=== PATIENT | male | born 1950 | race Caucasian/White ===

== ENCOUNTER 2018-06-19 12:38 | Emergency (ER) | payer BC, SELFPAY ==
[2018-06-19 12:39] VITALS: BP 158/99; PULSE 78; RESP 15; TEMP 36.3; O2SAT 98; BMI 27.7
--- NOTE | 2018-06-19 13:09 | CT_ITS ---
STUDY: CTA CHEST REASON FOR EXAM: Male, 67 years old. Chest and arm pain, back pain RADIATION DOSAGE (If Supplied By Facility): CTDIvol = ( 19.60 ) mGy, DLP = ( 1573.51 ) mGycm TECHNIQUE: The examination was performed with the intravenous administration of 100 ml of Isovue 370 contrast material. Post-processing of the angiographic images was performed, with multiplanar reformation and 3D reconstruction. Individualized dose optimization techniques were used for this CT. COMPARISON: Previous chest x-rays FINDINGS: Normal enhancement of the main pulmonary artery and right and left pulmonary arteries. Normal enhancement of the bilateral peripheral pulmonary arteries. There is no demonstrated pulmonary embolism. Normal thoracic aorta and visualized great vessels. There is no demonstrated aortic dissection. Normal heart and pericardium. There are calcifications of the coronary arteries. Normal mediastinum. Normal hilar regions. There is peribronchial thickening. The lungs are well expanded. Chronic interstitial changes in both lung tse, no superimposed acute pulmonary process. Normal pleura. Normal chest wall structures. There are degenerative changes of thoracic spine. Limited cuts through the upper abdomen show simple cysts within the liver. CT/CTA Chest W/WO Contrast IMPRESSION: No demonstrated PE, or thoracic aortic aneurysm or dissection Chronic interstitial changes in both lung tse, no superimposed infiltrate or effusion Calcified coronary vessels Hepatic cysts Degenerative bony changes Electronically Signed: Juan José Dubose MD at 16:19 EST , Service support ,
--- NOTE | 2018-06-19 13:09 | CT_ITS ---
STUDY: CTA OF THE BRAIN REASON FOR EXAM: Male, 67 years old. Left arm neck and chest pain RADIATION DOSAGE (If Supplied By Facility): CTDIvol = ( ) mGy, DLP = ( 846.73 ) mGycm TECHNIQUE: CT angiography was performed with a multi-detector CT scanner. Data acquisition was obtained from the skull base through the vertex following intravenous administration of ml of . MIP images were reconstructed from the axial data set. Post-processing of the angiographic images was performed, with multiplanar reformation and 3D reconstruction. Individualized dose optimization techniques were used for this CT. COMPARISON: None. FINDINGS: Normal bilateral petrous carotid arteries. Normal right cavernous carotid artery with a normal supraclinoid bifurcation. Normal left cavernous carotid artery with a normal supraclinoid bifurcation. Normal right A1 segments of the anterior cerebral artery. Normal left A1 segments of the anterior cerebral artery. Normal intact anterior communicating artery (ACOM). Normal bilateral A2 segments of the anterior cerebral arteries. Normal right M1 and M2 segments of the middle cerebral arteries, with a normal M1 bifurcation. Normal left M1 and M2 segments of the middle cerebral arteries, with a normal M1 bifurcation. Posterior communicating arteries are not visualized consistent with normal developmental variant. Normal bilateral vertebral arteries. Normal basilar artery with a normal basilar bifurcation. The visualized bilateral superior cerebellar (SCA) arteries are normal. Normal bilateral P1, P2 and visualized P3 segments of the posterior cerebral arteries. There is no demonstrated aneurysm of the kaw of [place]. There is no demonstrated abnormality of the visualized brain. CT/CTA Head W/WO Contrast IMPRESSION: Normal kaw of [place] without a demonstrated aneurysm or hemodynamically significant stenosis. Electronically Signed: Luisito Kaufman MD at 16:26 EST , Service support ,
--- NOTE | 2018-06-19 13:09 | EKG12_ITS ---
Test Reason : GEN ILLNESS Blood Pressure : / mmHG Vent. Rate : 058 BPM Atrial Rate : 058 BPM P-R Int : 148 ms QRS Dur : 094 ms QT Int : 432 ms P-R-T Axes : 017 011 026 degrees QTc Int : 424 ms Sinus bradycardia Otherwise normal ECG Confirmed by ABBY BROOKS, JOSE EDUARDO ([id number]), graphic editor DAVID JEAN-BAPTISTE ([id number]) on 06/21/2018 1:47:55 PM Referred By: KOFI Confirmed By:JOSE EDUARDO MORA MD
--- NOTE | 2018-06-19 13:09 | CT_ITS ---
STUDY: CTA NECK WITH AND WITHOUT CONTRAST REASON FOR EXAM: Male, 67 years old. Left arm chest and neck pain RADIATION DOSAGE (If Supplied By Facility): CTDIvol = ( ) mGy, DLP = ( 1573.5 ) mGycm TECHNIQUE: CT angiography with multi-detector data acquisition was performed from the aortic arch to the skull base prior to and after intravenous administration of 100ML ml of Isovue 370 contrast. MIP images were reconstructed from the axial data set. Post-processing of the angiographic images was performed, with multiplanar reformation and 3D reconstruction. Individualized dose optimization techniques were used for this CT. COMPARISON: None. FINDINGS: AORTIC ARCH: Normal visualized aortic arch. Normal origins of the brachiocephalic, left common carotid, and left subclavian arteries. RIGHT CAROTID ARTERIES: Mild diffuse soft plaque of the right common carotid artery (CCA). Minor soft plaque of the right common carotid bulb. Minor soft plaque of the origin of the right internal carotid (ICA) artery without a hemodynamically significant stenosis. Normal visualized cervical portion of the right internal carotid artery. Normal origin of the right external carotid artery (ECA). LEFT CAROTID ARTERIES: Mild diffuse soft plaque of the left common carotid artery (CCA). Minor soft plaque of the left common carotid bulb. Minor soft plaque of the origin of the left internal carotid (ICA) artery without a hemodynamically significant stenosis. Mild calcific plaque of the cervical portion of the left internal carotid artery. Normal origin of the left external carotid artery (ECA). VERTEBRAL ARTERIES: Normal bilateral vertebral arteries. CT/CTA Neck W/WO Contrast IMPRESSION: Mild atherosclerotic disease slightly more advanced on the left. No evidence for hemodynamically significant stenosis utilizing NASCET criteria Electronically Signed: Luisito Kaufman MD at 16:38 EST , Service support ,
[2018-06-19 13:34] VITALS: BP 144/81; PULSE 60; RESP 18; O2SAT 98
[2018-06-19 13:48] LABS: Absolute Lymphocyte Count 0.97 X10^3/ul (0.83-4.51); Absolute Neutrophil Count 2.8 X10^3/uL (2.0-7.7); Basophil# 0.01 X10^3/uL; Basophil% 0.2 % (0-1); Eosinophil# 0.09 X10^3/uL; Eosinophils% 2.1 % (0-5); Hematocrit 42.9 % (40-54); Hemoglobin 14.6 g/dl (13.0-16.5); Lymphocyte # 0.97 X10^3/ul (4.0); Lymphocyte % 22.2 % (19-41); Mean Corpuscular Hgb 31.9 pg (27.0-32.0); Mean Corpuscular Volume 93.7 fL (80-94); Mean Platelet Vol. 9.7 fl (6.2-12.0); Monocyte# 0.48 X10^3/uL; Neutrophil # 2.81 X10^3/uL (2.7-7.7); Neutrophil % 64.3 % (47-70); Platelet Count 163 K/mm3 (150-450); RBC Distribution Width CV 12.7 % (11.6-14.6); RBC Distribution Width SD 43.5 fl (35.1-43.9); Red Blood Count 4.58 M/mm3 (4.6-6.2); White Blood Count 4.4 K/mm3 (4.4-11.0)
[2018-06-19] MEDS: 0.9% Normal Saline 1,000 ML 1000 ML IV (13:48)
[2018-06-19 13:51] LABS: POSITIVE COUNT NO; POSITIVE DIFFERENTIAL NO; POSITIVE MORPHOLOGY NO
[2018-06-19 14:06] LABS: Anion Gap 8 (5-15); BUN 15 mg/dL (7-18); BUN/Creat Ratio 13.2 RATIO (10-20); Calcium,Total 8.2 mg/dL (8.5-10.1); Chloride 106 mmol/L (98-107); Creatinine, Serum 1.14 mg/dL (0.70-1.30); EST Glomerular Filtration Rate 68 mL/min (>60); Est Glom Filt Rate - Afr Amer 82 mL/min (>60); Estimated Creatinine Clearance 66.97 ml/min; Glucose 96 mg/dL (74-106); Potassium 3.9 mmol/L (3.5-5.1); Sodium Level 140 mmol/L (136-145)
[2018-06-19 15:17] VITALS: BP 141/81; PULSE 54; RESP 18; O2SAT 99
[2018-06-19 17:00] VITALS: BP 119/80; PULSE 63; RESP 16; O2SAT 96
--- NOTE | 2018-06-19 17:00 | ED.VISSUMM ---
- ER Visit Summary Date of Service: 06/19/18 Chief Complaint: Dizziness, chest pain, and fatigue History of Present Illness: The patient is a 67 M with multiple symptoms over the past few days. 4 days ago, he was dropping things at work with both hands. He felt like he had low energy. 3 days ago, he had some chest pain it was about a 3 out of 10 and it resolved with aspirin. 2 days ago, he felt dizzy. He had a floating sensation. He denies feeling like he was going to pass out. Over the past couple days, he just feels tired and weak. He came in today because his symptoms seem to be progressing. He was worried about a heart attack or stroke. He denies any history of coronary disease, [place], stroke, aortic or vascular disease, or PE. Physical Examination: Afebrile and vital signs unremarkable. Alert and oriented. No acute distress. Cranial nerves grossly intact. No focal or lateralizing neurologic abnormalities, normal speech. NIH stroke scale is 0. Heart regular rate and rhythm. Lungs clear. Abdomen soft and nontender. Skin normal in color without diaphoresis or pallor. Test Results: EKG showed sinus rhythm at a rate of 58. No sign of acute ischemia or infarction pattern. CBC, BMP, troponin normal. CTA brain was unremarkable. CTA neck showed atherosclerotic disease, worse on the left. CTA chest showed chronic changes, calcified coronary arteries, hepatic cyst, and degenerative spinal changes. Emergency Department Course and Treatment: Patient has multiple vague symptoms. They seem to be inconsistent. This could be an atypical presentation for cardiac disease or HEALTH CARE SOCIAL WORKER disease. I also considered vascular etiologies. There is nothing to suggest infection, pulmonary, GI disease. I did a thorough workup. His EKG and labs were unremarkable. CTA brain, neck, and chest showed chronic changes. No significant stenosis. No aneurysms. No dissection or PE. Nothing to explain his constellation of symptoms. On reevaluation, the patient has no further symptoms. He feels better. No changes. He is overall low risk and would like to follow-up as an outpatient. Spoke with Dr. Shane who is comfortable following up with him as an outpatient. Advised the patient to return for any new or worsening symptoms right away. Treatment Plan: As above Disposition: Discharge Impression: 1. Dizziness This note was generated with [employer] software. It may contain incorrect words, spelling, and punctuation that were not noted in review of the chart prior to signing ED Disposition - Plan for ED Patient: Chief Complaint: General Illness Referrals: Herman Shane III, MD [Primary Care Provider] -
[2018-06-19 17:01] VITALS: BP 134/84; PULSE 63; RESP 17; O2SAT 96
--- NOTE | 2018-06-19 17:05 | ED.DCSUM_ITS ---
- ER Visit Summary Date of Service: 06/19/18 Chief Complaint: Dizziness, chest pain, and fatigue History of Present Illness: The patient is a 67 M with multiple symptoms over the past few days. 4 days ago, he was dropping things at work with both hands. He felt like he had low energy. 3 days ago, he had some chest pain it was about a 3 out of 10 and it resolved with aspirin. 2 days ago, he felt dizzy. He had a floating sensation. He denies feeling like he was going to pass out. Over the past couple days, he just feels tired and weak. He came in today because his symptoms seem to be progressing. He was worried about a heart attack or stroke. He denies any history of coronary disease, [place], stroke, aortic or vascular disease, or PE. Physical Examination: Afebrile and vital signs unremarkable. Alert and oriented. No acute distress. Cranial nerves grossly intact. No focal or lateralizing neurologic abnormalities, normal speech. NIH stroke scale is 0. Heart regular rate and rhythm. Lungs clear. Abdomen soft and nontender. Skin normal in color without diaphoresis or pallor. Test Results: EKG showed sinus rhythm at a rate of 58. No sign of acute ischemia or infarction pattern. CBC, BMP, troponin normal. CTA brain was unremarkable. CTA neck showed atherosclerotic disease, worse on the left. CTA chest showed chronic changes, calcified coronary arteries, hepatic cyst, and degenerative spinal changes. Emergency Department Course and Treatment: Patient has multiple vague symptoms. They seem to be inconsistent. This could be an atypical presentation for cardiac disease or MANAGEMENT CONSULTANT disease. I also considered vascular etiologies. There is nothing to suggest infection, pulmonary, GI disease. I did a thorough workup. His EKG and labs were unremarkable. CTA brain, neck, and chest showed chronic changes. No significant stenosis. No aneurysms. No dissection or PE. Nothing to explain his constellation of symptoms. On reevaluation, the patient has no further symptoms. He feels better. No changes. He is overall low risk and would like to follow-up as an outpatient. Spoke with Dr. Shane who is comfortable following up with him as an outpatient. Advised the patient to return for any new or worsening symptoms right away. Treatment Plan: As above Disposition: Discharge Impression: 1. Dizziness This note was generated with [employer] software. It may contain incorrect words, spelling, and punctuation that were not noted in review of the chart prior to signing ED Disposition - Plan for ED Patient: Chief Complaint: General Illness Referrals: Herman Shane III, MD [Primary Care Provider] -
--- NOTE | 2018-06-19 17:05 | ED.DEP ---
ED Disposition - Plan for ED Patient: Chief Complaint: General Illness Instructions: ED Dizziness [facility] Referrals: Herman Shane III, MD [Primary Care Provider] -
== END 2018-06-19 17:08 | disposition home or self-care (01) ==
PROVIDERS: Emergency Provider Emergency Medicine; Family Provider Family Medicine; PCP Family Medicine
DX: R42 Dizziness and giddiness (principal); R07.9 Chest pain, unspecified; R53.1 Weakness
CPT/HCPCS: 70496; 70498; 71275; 80048; 84484; 85025; 93005; 96360; 99283; J7030; Q9967; A4216